=== PATIENT | male | born 1970 | race Caucasian/White ===

== ENCOUNTER 2020-09-23 08:21 | Outpatient (REF) | payer BC, SELFPAY ==
[2020-09-23 08:39] LABS: COVID-19 Test Negative (Negative); IDNOW Serial# 55D5AD1C
== END 2020-09-23 08:22 | disposition home or self-care (01) ==
LOC: HO.LAB 08:21
PROVIDERS: PCP Internal Medicine; Visit Provider Internal Medicine
DX: Z20.822 Contact with and (suspected) exposure to COVID-19 (principal)
CPT/HCPCS: 36415; 87635; C9803

== ENCOUNTER 2020-12-15 07:54 | Outpatient (REF) | payer BC, SELFPAY ==
--- NOTE | 2020-12-15 09:44 | MHC.AU.P13 ---
Adult Audiological Evaluation Date of Visit: 12/15/20 Electromyographic Technician Used: Not Applicable Reason for Appointment: Audiologic evaluation due to tinnitus, left ear greater than right. Vic notes he has intermittently experienced tinnitus for many years; however, in July 2020, the tinnitus in the left ear has been constant. He experiences a brief unsteadiness at least 2-3 per day. MRI was performed recently with normal results. Vic has tried a tinnitus masker and noise machine received from the [employer] with no relief. He also notes he feels his pulse in the right ear, particularly when laying down. Vic has a history of chronic pain related to his joints and he does not sleep well. He does note fatigue and some stress as he is completing his Masters Degree next month and works daytime caregiver. Does patient feel they have a hearing loss?: Yes If Yes, Which Ear?: Left Ear When Was Hearing Difficulty First Noticed?: 5 years ago Has hearing been tested previously?: Yes Previous Hearing Test Results: In the . Results are not available for review Hearing Handicap Inventory: HHIE SCORE: 0 Based on HHIE score, patient has: No perceived hearing handicap Ear History: Bothersome Tinnitus/Ringing/Noises in Ears: Both Ears Ear used on the phone: Left Ear History of occupational noise exposure?: Yes: Uses hearing protection consistently History: History: Yes Branch: [employer] Years in : 20+ Years Medical History: Medical History: Headache Medication List: Omprezole Otoscopy: Right Ear: Unremarkable Left Ear: Unremarkable Tympanometry: Tympanometry performed due to: To assess integrity of the middle ear system Right Ear: Negative Middle Ear Pressure (Type C) Left Ear: Negative Middle Ear Pressure (Type C) Otoacoustic Emissions Frequency Range Used: 1.6-8 kHz Right Ear Results: Present 1600, 2000, 3900-2318 Hz. Absent 3000, 7000, 8000 Hz Analysis: Present emissions suggest normal cochlear function Reduced/absent emissions may be consequence of middle ear dysfunction Left Ear Results: Present 8147-3572 Hz Absent 8580-1743 Hz Analysis: Present emissions suggest normal cochlear function Reduced/absent emissions may be consequence of middle ear dysfunction Hearing Evaluation: Transducer(s) Used: Insert Earphones Bone Conduction Method: Conventional Audiometry Stimuli Used: Pure Tones Right Ear: Description of Hearing: Mild conductive hearing loss 250-1000 Hz rising to normal hearing thresholds at 5163-9011 Hz Left Ear: Description of Hearing: Mild conductive hearing loss at 250-1000, 4000, and 8000 Hz with normal hearing thresholds for the remaining frequencies Speech Recognition Threshold (SRT): Method Used: Monitored Live Voice Stimuli Used: Spondee Words Right Ear: 15 dB HL Left Ear: 20 dB HL Word Discrimination: Method: Recorded Lists Word Lists Used: NU-6 Right Ear: 100% at 60 dB HL Left Ear: 100% at 60 dB HL Interpretation of Results: Vic experiences many factors which can increase tinnitus, including a mild conductive hearing loss with mild negative middle ear pressure, history of noise exposure, chronic pain, fatigue, and stress. Discussed the theories of tinnitus and management strategies. Recommendations: 1) Advise medical consultation with an [facility] regarding the symptoms of conductive hearing loss/mild middle ear dysfunction, daily unsteadiness, and tinnitus. 2) Consider returning to the [place] for their [facility] Tinnitus [facility]. 3) Audiologic re-evaluation in one year to monitor symptoms. Will send a reminder card. If a change in symptoms are noted before that time, an earlier appointment may be scheduled. Diagnosis: Primary Diagnosis: H93.13 Tinnitus, Bilateral Secondary Diagnosis: H90.0 Conductive Hearing Loss, Bilateral Services Performed: Comprehensive Audiological Evaluation (CPT 62527) Diagnostic Otoacoustic Emissions (CPT 49613, 26+TC) Tympanometry (CPT 76370) Signature: Provider: Criss Kessler, CCC-A
== END 2020-12-15 07:55 | disposition home or self-care (01) ==
LOC: HO.SH 07:54
PROVIDERS: Visit Provider Internal Medicine
DX: H90.3 Sensorineural hearing loss, bilateral (principal); H93.13 Tinnitus, bilateral
CPT/HCPCS: 92557; 92567; 92588

== ENCOUNTER 2022-03-09 08:53 | Outpatient (REF) | payer BC, SELFPAY ==
--- NOTE | 2022-04-09 14:28 | MHC.AU.ANO ---
Adult Audiological Evaluation Date of Visit: 03/09/22 Internal Medicine Physician Used: Not Applicable Reason for Appointment: Audiologic re-evaluation to monitor hearing thresholds, middle ear dysfunction, and his symptom of tinnitus. Vic was tested at this office in December of 2020 and found to have bilateral negative middle ear pressure with mild conductive hearing loss for both ears. Medical consultation with an ENT was recommended last year; however, he reports he did not schedule an appointment. He reports today there is no change in his perception of the tinnitus and the hearing continues to fluctuate. Vic does note an increase in his allergy symptoms today. Ear History: Bothersome Tinnitus/Ringing/Noises in Ears: Yes History of occupational noise exposure?: Yes: Uses hearing protection consistently Medical History: Medical History: Headache Medication List: None reported Otoscopy: Right Ear: Unremarkable Left Ear: Unremarkable Tympanometry: Tympanometry performed due to: History of middle ear dysfunction Right Ear: Negative Middle Ear Pressure (Type C) Left Ear: Negative Middle Ear Pressure (Type C) Otoacoustic Emissions Frequency Range Used: 1.6-8 kHz Right Ear Results: Present 6166-1173, Reduced 5268-7980, Absent 8555-7712 Hz Analysis: Present emissions suggest normal cochlear function Reduced/absent emissions may be consequence of middle ear dysfunction Left Ear Results: Present 1600 & 2000, Reduced 2500, Absent 4251-8803 Hz Analysis: Present emissions suggest normal cochlear function Reduced/absent emissions may be consequence of middle ear dysfunction Hearing Evaluation: Transducer(s) Used: Insert Earphones Bone Conduction Method: Conventional Audiometry Stimuli Used: Pure Tones Right Ear: Description of Hearing: Mild conductive hearing loss 250-1000 Hz, rising to normal hearing thresholds 5061-2201 Hz Left Ear: Description of Hearing: Mild to moderate conductive hearing loss 250-1000 Hz and 4000 Hz, with normal hearing levels for the remaining frequencies. Speech Recognition Threshold (SRT): Method Used: Monitored Live Voice Stimuli Used: Spondee Words Right Ear: 15 dB HL Left Ear: 20 dB HL Word Discrimination: Method: Recorded Lists Word Lists Used: NU-6 Right Ear: 100% at 55 dB HL Left Ear: 100% at 60 dB HL Comparison: Compared to the most recent evaluation: Thresholds have decreased in the left ear. Increased middle ear dysfunction bilaterally Recommendations: Due to the increased middle dysfunction for both ears and decreased left ear thresholds, advise referral to Ear, Nose, and Throat to address middle ear dysfunction. Audiological re-evaluation in one year. Will send a reminder card. Diagnosis: Primary Diagnosis: H90.0 Conductive Hearing Loss, Bilateral Secondary Diagnosis: H69.93 Unspecified Eustachian Tube Dysfunction, Bilateral Services Performed: Comprehensive Audiological Evaluation (CPT 59982) Diagnostic Otoacoustic Emissions (CPT 92160, 26+TC) Tympanometry (CPT 64263) Signature: Provider: Criss Kessler, CCC-A
== END 2022-03-09 08:54 | disposition home or self-care (01) ==
LOC: HO.SH 08:53
PROVIDERS: Visit Provider Physician Assistant Medical
DX: Z01.118 Encounter for examination of ears and hearing with other abnormal findings (principal); H90.0 Conductive hearing loss, bilateral; H69.93 Unspecified Eustachian tube disorder, bilateral
CPT/HCPCS: 92557; 92567; 92588

== ENCOUNTER 2023-02-23 08:03 | Outpatient (REF) | payer BC, SELFPAY ==
--- NOTE | ~2023-02-23 | MR_ITS ---
EXAMINATION: MR BRAIN WITHOUT AND WITH CONTRAST CLINICAL INFORMATION: Tinnitus. Migraines. Dizziness. COMPARISON: None available. TECHNIQUE: Multiplanar, multisequence imaging of the brain was performed before and after the intravenous administration of 9 mL of Gadavist. FINDINGS: The inner ear structures including the cochlea, vestibules, and semicircular canals exhibit preserved CSF signal intensity with no pathologic enhancement. The vestibular aqueducts are not enlarged. Cranial nerves VII and VIII complexes are normal in morphology. No enhancing cerebellopontine angle/retrocochlear lesion. There is fluid in the bilateral mastoids, left more than right. There is no intracranial mass or abnormal intracranial enhancement. There is no acute infarction. There is no intracranial hemorrhage or extra axial collection. The ventricles, sulci, and basilar cisterns are normal in size and configuration. The flow voids of the major intracranial arteries appear intact. The bones and extracranial soft tissues are within normal limits. MR/MR head/brain wo/w con IMPRESSION: 1. No vestibular schwannoma or retrocochlear lesion. 2. No mass lesion, acute infarction, or abnormal intracranial enhancement. 3. Bilateral mastoid effusions, left more than right.
== END 2023-02-23 08:04 | disposition home or self-care (01) ==
LOC: HO.MRI 08:03
PROVIDERS: PCP Physician Assistant Medical; Visit Provider Psychiatry & Neurology Neurology
DX: H93.19 Tinnitus, unspecified ear (principal); G43.909 Migraine, unspecified, not intractable, without status migrainosus
CPT/HCPCS: 70553; A9585

== ENCOUNTER 2023-03-01 08:49 | Outpatient (REF) | payer BC, SELFPAY ==
[2023-03-01 10:15] LABS: Vitamin B12 915 pg/mL (200-900)
[2023-03-02 04:09] LABS: Syphilis Screen Nonreactive (Nonreactive)
[2023-03-04 02:39] LABS: Lyme Abs Screen <0.90 index
== END 2023-03-01 08:50 | disposition home or self-care (01) ==
LOC: HO.LAB 08:49
PROVIDERS: PCP Physician Assistant Medical; Visit Provider Psychiatry & Neurology Neurology
DX: G31.84 Mild cognitive impairment of uncertain or unknown etiology (principal)
CPT/HCPCS: 36415; 82607; 86617; 86618; 86780

== ENCOUNTER 2023-08-01 09:10 | Day surgery (SDC) | payer BC, SELFPAY ==
--- NOTE | ~2023-08-01 | FL_ITS ---
Fluoroscopic lumbar puncture Indication: Mild cognitive impairment Risks and benefits and possible complications were discussed with the patient and the consent form was signed. Patient was placed prone on the fluoroscopy table. The back was prepped and draped in routine sterile fashion. Betadine was used as a skin antiseptic. Utilizing fluoroscopic guidance, the L4-5 level was accessed with a 22 gauge Maximus spinal needle and clear CSF fluid obtained. Opening pressure was 19 cm. 9 cc of fluid was sent for analysis. The needle was removed without immediate complications. Total fluoroscopy time: 0.6 min FL/FL guided lumbar puncture LP Impression: Fluoroscopic lumbar puncture This procedure was performed by Tyrese Blunt PA-C and supervised by Dr. Morgan.
[2023-08-01 09:41] VITALS: BMI 27.7
[2023-08-01 09:52] LABS: MANUAL DIFF FLAG NO
[2023-08-01 10:04] LABS: Basophils Absolute Auto 0.1 X10*3/uL (0.0-0.2); Basophils Percent Auto 0.6 % (0-2); Eosinophils Absolute Auto 0.2 X10*3/uL (0.0-0.4); Eosinophils Percent Auto 2.2 % (0-4); Hematocrit 43.1 % (42.0-52.0); Hemoglobin 14.7 g/dl (14.0-18.0); Imm Gran Abs Auto 0.02 X10*3/uL (0.00-0.03); Imm Gran Pct Auto 0.2 % (0.0-0.4); Lymphocytes Absolute Auto 2.3 X10*3/uL (1.2-4.9); Lymphocytes Percent Auto 22.3 % (20-40); Mean Corpuscular HGB Conc 34.1 g/dl (31.0-36.0); Mean Corpuscular Hemoglobin 29.1 pg (27.0-33.0); Mean Corpuscular Volume 85.2 fL (80.0-98.0); Mean Platelet Volume 8.7 fL (9.4-12.4); Monocytes Absolute Auto 0.8 X10*3/uL (0.1-1.2); Monocytes Percent Auto 7.6 % (2-11); Neutrophils Percent Auto 67.1 % (45-73); Platelet Count 336 X10*3/uL (160-400); Red Blood Count 5.06 X10*6/uL (4.60-5.80); Red Cell Distribution Width 12.6 % (11.0-16.0); White Blood Count 10.5 X10*3/uL (4.8-10.8)
[2023-08-01 10:06] LABS: Prothrombin Time 12.2 SEC (11.1-13.3)
[2023-08-01 10:09] LABS: Partial Thromboplastin Time 28.4 SEC (26.0-36.4)
[2023-08-01 12:05] VITALS: BP 123/73; PULSE 70; RESP 16; TEMP 36.8; O2SAT 99
[2023-08-01 12:20] VITALS: BP 137/80; PULSE 65; RESP 17; O2SAT 97
[2023-08-01 12:35] VITALS: BP 137/80; PULSE 75; RESP 17; O2SAT 97
[2023-08-01 12:50] VITALS: BP 137/80; PULSE 78; RESP 17; O2SAT 98
[2023-08-01 12:53] LABS: CSF Appearance Clear, Colorless; CSF Tube # 1
[2023-08-01 13:02] VITALS: BP 131/73; PULSE 78; RESP 18; TEMP 36.4; O2SAT 99
[2023-08-01 13:04] LABS: Glucose CSF 63 mg/dL
[2023-08-01 13:21] LABS: Appearance CSF CLEAR; CSF Monos 20 %; CSF Tube # 4; Color CSF COLORLESS; Lymphocytes CSF 80 %; Red Blood Cell CSF 25 MM*3; White Blood Cell CSF 1 MM*3
[2023-08-03 22:43] LABS: Albumin 4.2 g/dL (3.6-5.1); Albumin, CSF 47.2 mg/dL (8.0-42.0); IgG 1260 mg/dL (600-1640); IgG Synthesis Rate -5.2 mg/24 h (-9.9-3.3); IgG, CSF 6.1 mg/dL (0.8-7.7)
== END 2023-08-01 13:05 | disposition home or self-care (01) ==
PROVIDERS: Physician Assistant Surgical; Student in an Organized Health Care Education/Training Program; PCP Physician Assistant Medical; Visit Provider Psychiatry & Neurology Neurology
PROC: 009U3ZZ Drainage of Spinal Canal, Percutaneous Approach (ICD-10-PCS; CPT 62270; principal; 2023-08-01 11:00)
DX: G31.84 Mild cognitive impairment of uncertain or unknown etiology (principal); G43.909 Migraine, unspecified, not intractable, without status migrainosus; H93.19 Tinnitus, unspecified ear; R42 Dizziness and giddiness; H90.0 Conductive hearing loss, bilateral; K21.9 Gastro-esophageal reflux disease without esophagitis; Z90.5 Acquired absence of kidney; Z79.899 Other long term (current) drug therapy
CPT/HCPCS: 36415; 62328; 82042; 82945; 83520; 83916; 84157; 85025; 85610; 85730; 87015; 87070; 87205; 89051

== ENCOUNTER → 2023-08-01 11:14 | Outpatient (BNV) | payer BC, SELFPAY | PROVIDERS: PCP Physician Assistant Medical; Visit Provider Radiology Diagnostic Radiology | DX: G31.84 Mild cognitive impairment of uncertain or unknown etiology (principal) | CPT/HCPCS: 62328 ==